=== PATIENT | female | born 1990 | race Caucasian/White ===

== ENCOUNTER 2023-07-29 23:41 | Day surgery (SDC) | payer SELFPAY ==
[2023-07-29 23:54] VITALS: BMI 33.6
[2023-07-30] MEDS ORDERED: hydrALAZINE 20 MG/ML VIAL SLOW IVP PRN (00:12)
[2023-07-30 01:14] LABS: Bilirubin Neg (Negative); Blood, Urine 250 (Negative); Clarity Clear (Clear); Glucose, Urine (Dipstick) Normal (Negative); Ketone, Urine 15 mg/dL (Negative); Leukocyte 25 (Negative); Nitrite Negative (Negative); Protein, Urine (Dipstick) 30 mg/dl (Neg-Trace); Specific Gravity, Urine 1.025 (1.005-1.030); Urobilinogen Normal mg/dL (Less than 2)
[2023-07-30 01:17] LABS: Amphetamine Not Detected (NotDetected); Barbiturates Screen Not Detected (NotDetected); Benzodiazepine Screen Not Detected (NotDetected); Cocaine Metabolite Screen Not Detected (NotDetected); Methadone Not Detected (NotDetected); Methamphetamine Not Detected (NotDetected); Opiate Screen Not Detected (NotDetected); Oxycodone Screen Not Detected (NotDetected); Phencyclidine (PCP) Not Detected (NotDetected); THC/Cannabinoid Screen Detected (NotDetected); Tricyclic Screen Not Detected (NotDetected)
[2023-07-30 01:28] LABS: CAUTI Indications for Culture Pregnancy
[2023-07-30 01:29] LABS: Bacteria/HPF 2+ HPF (None Seen); Squamous Epithelial 0-3 HPF (0-3)
[2023-07-30 01:30] LABS: Urine Culture Reflex Yes Yes
[2023-07-30 01:52] LABS: HIV (1/2) Antibody/Antigen Non-Reactive (NonReactive); HIV 1/2 INDEX 0.09 S/CO (<1.00)
[2023-07-30 02:15] LABS: Syphilis Antibody Nonreactive (Nonreactive); Syphilis Antibody Index 0.02 S/CO (<1.00 Non-Reactive)
[2023-07-30 17:09] LABS: Chlamydia by PCR, EndoCx Swab Not Detected (NotDetected); GC by PCR, EndoCx Swab Not Detected (NotDetected)
[2023-07-31 13:19] LABS: Group B Streptococcus by PCR DETECTED (NotDetected)
== END 2023-07-30 03:07 | disposition home or self-care (01) ==
LOC: CSHLD/OP 23:41
PROVIDERS: ATTEND Obstetrics & Gynecology
DX: O99.891 Other specified diseases and conditions complicating pregnancy (principal); N93.0 Postcoital and contact bleeding; O23.43 Unspecified infection of urinary tract in pregnancy, third trimester; N39.0 Urinary tract infection, site not specified; Z3A.35 35 weeks gestation of pregnancy; Z91.010 Allergy to peanuts
CPT/HCPCS: 36415; 76815; 80306; 81001; 86762; 86780; 86900; 86901; 87077; 87086; 87389; 87491; 87591; 87653

== ENCOUNTER 2023-08-23 23:00 | Inpatient (IN) | payer MEDICAID, OTHER ==
[2023-08-23 23:33] VITALS: BMI 36.3
[2023-08-24] MEDS ORDERED: Famotidine/PF 20 mg/2ml Vial SLOW IVP PRN (00:18)
[2023-08-24] MEDS ORDERED: Misoprostol 200 MCG TAB PR PRN (00:18)
[2023-08-24] MEDS ORDERED: Ondansetron PF 4 MG/2 ML Vial IVP PRN ×4 (00:18→10:06)
[2023-08-24] MEDS ORDERED: Promethazine HCl 25 MG/ML VIAL IM PRN ×2 (00:18→01:46)
[2023-08-24] MEDS ORDERED: Methylergonovine 0.2 MG/ML VIAL IM PRN (00:18)
[2023-08-24] MEDS ORDERED: Carboprost 250 MCG/ML AMP IM PRN (00:18)
[2023-08-24] MEDS ORDERED: hydrALAZINE 20 MG/ML VIAL SLOW IVP PRN ×2 (00:18→05:55)
[2023-08-24] MEDS ORDERED: Tranexamic Acid 1,000 MG/10 ML VIAL IVP PRN (00:18)
[2023-08-24] MEDS ORDERED: Bicitra 30 ML UDCUP PO PRN (00:18)
[2023-08-24] MEDS ORDERED: CEFAZOLIN 2 GM in Sodium Chloride 0.9% 100 ML IVPB SCH (00:30)
[2023-08-24] MEDS ORDERED: Lactated Ringer's 1,000 ML IV SCH (00:30)
[2023-08-24] MEDS ORDERED: Azithromycin 500 MG in Sodium Chloride 0.9% 250 ML 250 ML IVPB SCH (00:30)
[2023-08-24] MEDS ORDERED: Oxytocin 30 units/NS 500 ML 500 ML IV SCH (00:30)
[2023-08-24 00:44] LABS: Hematocrit 22.6 % (34.9-44.5); Hemoglobin 7.9 g/dL (12.0-15.5); Mean Corpuscular Hemoglobin 32.5 pg (27.0-33.0); Mean Platelet Volume 9.6 fl (7.4-10.4); Platelet Count 175 10x3/uL (150-450); RBC Distribution Width 12.6 % (11.5-14.5); Red Blood Cell (RBC) Count 2.43 10x6/uL (3.90-5.03); White Blood Cell (WBC) Count 8.5 10x3/uL (3.5-10.5)
[2023-08-24] MEDS ORDERED: Phenylephrine 40 MG/NS 250 ML 250 ML ONE (01:01)
[2023-08-24] MEDS ORDERED: Sodium Chloride 0.9% 10 ML ONE (01:01)
[2023-08-24] MEDS ORDERED: Dexmedetomidine 200 MCG/2 ML VIAL ONE (01:02)
[2023-08-24] MEDS ORDERED: Morphine PF 10 MG/10 ML VIAL ONE (01:02)
[2023-08-24 01:16] LABS: HBSAg Index 0.18 S/CO (0-0.99); Hep B Surf Ag - L&D Non-Reactive S/CO (NonReactive)
[2023-08-24 01:17] LABS: Syphilis Antibody Nonreactive (Nonreactive); Syphilis Antibody Index 0.02 S/CO (<1.00 Non-Reactive)
[2023-08-24] MEDS ORDERED: Dexamethasone 4 mg/ml Vial ONE (01:17)
[2023-08-24] MEDS ORDERED: Ondansetron PF 4 MG/2 ML Vial ONE (01:17)
[2023-08-24] MEDS ORDERED: Ketorolac Tromethamine 30 MG/ML VIAL ONE (01:17)
[2023-08-24] MEDS ORDERED: Oxytocin 10 UNITS/ML VIAL ONE ×2 (01:20→01:52)
[2023-08-24] MEDS ORDERED: Carboprost 250 MCG/ML AMP ONE (01:28)
[2023-08-24] MEDS ORDERED: Methylergonovine 0.2 MG/ML VIAL ONE (01:28)
[2023-08-24] MEDS ORDERED: diphenhydrAMINE 50 MG/ML VIAL IVP PRN (01:46)
[2023-08-24] MEDS ORDERED: fentaNYL 50 mcg/mL 1 mL Vial SLOW IVP PRN (01:46)
[2023-08-24] MEDS ORDERED: Naloxone HCl 0.4 mg/ml Vial IVP PRN ×2 (01:46)
[2023-08-24] MEDS ORDERED: Promethazine HCl 25 MG SUPP PR PRN (01:46)
[2023-08-24] MEDS ORDERED: Naloxone HCl 0.4 mg/ml Vial IV PRN (01:46)
[2023-08-24] MEDS ORDERED: Meperidine HCl/PF 25 MG/ML VIAL SLOW IVP PRN (01:46)
[2023-08-24] MEDS ORDERED: Moisturizing Cream (Eucerin) 113 GM JAR TOP PRN (01:46)
[2023-08-24] MEDS ORDERED: Communication Order-Pharmacy FS SCH (02:00)
[2023-08-24] MEDS ORDERED: Lanolin Ointment 7 GM TUBE TOP PRN (05:55)
[2023-08-24] MEDS ORDERED: Boostrix 0.5 ML (Tdap) VIAL (>/=7 yrs of age) IM ONE (05:55)
[2023-08-24] MEDS ORDERED: Bisacodyl 10 MG SUPP PR PRN (05:55)
[2023-08-24] MEDS: Docusate 100 MG CAP PO SCH ×2 (07:58→19:59)
[2023-08-24] MEDS: Simethicone Chewable 80 MG TAB PO PRN ×2 (07:58→14:06)
[2023-08-24] MEDS: Ferrous Sulfate 325 MG TAB PO SCH ×2 (07:58→19:19)
[2023-08-24] MEDS: Prenatal Vitamin 1 TAB PO SCH (07:58)
[2023-08-24] MEDS: Ketorolac Tromethamine 30 MG/ML VIAL IVP SCH ×3 (07:59→20:00)
[2023-08-24 09:34] LABS: Hematocrit 38.3 % (34.9-44.5); Hemoglobin 13.7 g/dL (12.0-15.5); Mean Corpuscular HGB CONC 35.8 g/dL (32.0-36.0); Mean Corpuscular Hemoglobin 32.5 pg (27.0-33.0); Mean Platelet Volume 9.7 fl (7.4-10.4); Platelet Count 268 10x3/uL (150-450); RBC Distribution Width 12.9 % (11.5-14.5); Red Blood Cell (RBC) Count 4.21 10x6/uL (3.90-5.03); White Blood Cell (WBC) Count 23.2 10x3/uL (3.5-10.5)
[2023-08-24] MEDS ORDERED: Ibuprofen 800 MG TAB PO PRN (10:07)
[2023-08-24 10:46] LABS: Amphetamine Not Detected (NotDetected); Barbiturates Screen Not Detected (NotDetected); Benzodiazepine Screen Not Detected (NotDetected); Cocaine Metabolite Screen Detected (NotDetected); Methadone Not Detected (NotDetected); Methamphetamine Not Detected (NotDetected); Opiate Screen Detected (NotDetected); Oxycodone Screen Not Detected (NotDetected); Phencyclidine (PCP) Not Detected (NotDetected); THC/Cannabinoid Screen Detected (NotDetected); Tricyclic Screen Not Detected (NotDetected)
[2023-08-24] MEDS ORDERED: HYDROcodone/Acetaminophen 5/325 mg Tablet PO PRN (14:00)
[2023-08-25] MEDS: Ketorolac Tromethamine 30 MG/ML VIAL IVP SCH (03:22)
[2023-08-25 04:07] LABS: Hemoglobin 11.5 g/dL (12.0-15.5); Mean Corpuscular HGB CONC 34.8 g/dL (32.0-36.0); Mean Corpuscular Volume 91.9 fl (81.6-98.3); Mean Platelet Volume 9.8 fl (7.4-10.4); Platelet Count 228 10x3/uL (150-450); Red Blood Cell (RBC) Count 3.59 10x6/uL (3.90-5.03); White Blood Cell (WBC) Count 14.4 10x3/uL (3.5-10.5)
[2023-08-25] MEDS ORDERED: Ibuprofen 800 MG TAB PO SCH (06:00)
[2023-08-25] MEDS: Ferrous Sulfate 325 MG TAB PO SCH ×2 (07:08→19:14)
[2023-08-25] MEDS ORDERED: Ibuprofen 600 MG TAB PO PRN (07:11)
[2023-08-25] MEDS: Docusate 100 MG CAP PO SCH ×2 (07:39→20:29)
[2023-08-25] MEDS: Simethicone Chewable 80 MG TAB PO PRN ×3 (07:39→20:29)
[2023-08-25] MEDS: Prenatal Vitamin 1 TAB PO SCH (07:40)
[2023-08-25] MEDS: Ibuprofen 800 MG TAB PO SCH ×3 (07:40→23:51)
[2023-08-25] MEDS: HYDROcodone/Acetaminophen 5/325 mg Tablet PO PRN ×2 (16:21→20:29)
[2023-08-26] MEDS: Docusate 100 MG CAP PO SCH (07:48)
[2023-08-26] MEDS: Ibuprofen 800 MG TAB PO SCH (07:49)
[2023-08-26] MEDS: Prenatal Vitamin 1 TAB PO SCH (07:49)
[2023-08-26 07:51] VITALS: BP 109/65; TEMP 98.2
[2023-08-26] MEDS ORDERED: Polyethylene Glycol 3350 17 GM Packet PO SCH (09:00)
[2023-08-26] MEDS: Ferrous Sulfate 325 MG TAB PO SCH (09:02)
== END 2023-08-26 17:10 | disposition home or self-care (01) | DRG 787 ==
LOC: CSHLD/OP 23:00 → CSHLD 08-24 00:25 → CSHPP 08-24 04:58
PROVIDERS: ADMIT Obstetrics & Gynecology; ATTEND Obstetrics & Gynecology
PROC: 10D00Z1 Extraction of Products of Conception, Low, Open Approach (ICD-10-PCS; principal; 2023-08-24)
PROC: 30233N1 Transfusion of Nonautologous Red Blood Cells into Peripheral Vein, Percutaneous Approach (ICD-10-PCS; 2023-08-24)
PROC: 3E033XZ Introduction of Vasopressor into Peripheral Vein, Percutaneous Approach (ICD-10-PCS; 2023-08-24)
DX: O34.211 Maternal care for low transverse scar from previous cesarean delivery (principal); D62 Acute posthemorrhagic anemia; O98.52 Other viral diseases complicating childbirth; A60.00 Herpesviral infection of urogenital system, unspecified; Z3A.38 38 weeks gestation of pregnancy; Z37.0 Single live birth; Z91.018 Allergy to other foods; O99.02 Anemia complicating childbirth; O34.13 Maternal care for benign tumor of corpus uteri, third trimester; O99.892 Other specified diseases and conditions complicating childbirth; F19.90 Other psychoactive substance use, unspecified, uncomplicated
CPT/HCPCS: 36430; 51702; 80306; 85027; 86780; 86850; 86900; 86901; 87340; 90715; 99285; J1100; J1885; J2274; J2405; J2590; P9016